=== PATIENT | female | born 1980 | race Hispanic/Latino ===

== ENCOUNTER 2016-08-08 00:20 | Outpatient (CLI) | payer MEDICAID ==
[2016-08-08 01:15] VITALS: BP 132/81
[2016-08-08 01:50] LABS: Bilirubin,Urine NEG (Negative); Blood,Urine NEG (Negative); Ketones,Urine TR mg/dL (Negative); Leukocyte Esterase,Urine NEG (Negative); Mucus,Urine 3+ /HPF; Nitrite,Urine NEG (Negative)
== END 2016-08-08 02:10 | disposition home or self-care (01) ==
LOC: TRG 00:20
PROVIDERS: ATTEND Obstetrics & Gynecology
DX: O47.1 False labor at or after 37 completed weeks of gestation (principal); Z3A.38 38 weeks gestation of pregnancy
CPT/HCPCS: 81001

== ENCOUNTER 2016-08-12 18:13 | Outpatient (CLI) | payer MEDICAID | END 2016-08-12 20:00 | disposition home or self-care (01) | LOC: TRG 18:13 | PROVIDERS: ATTEND Obstetrics & Gynecology | DX: O09.523 Supervision of elderly multigravida, third trimester (principal); O47.1 False labor at or after 37 completed weeks of gestation; Z3A.38 38 weeks gestation of pregnancy | CPT/HCPCS: 59025 ==

== ENCOUNTER 2016-08-14 12:24 | Inpatient (IN) | payer MEDICAID ==
[2016-08-14] MEDS ORDERED: LACTATED RINGERS 1,000 ML ONE (14:07)
[2016-08-14] MEDS ORDERED: SUBLIMAZE IV PRN (14:21)
[2016-08-14] MEDS: LACTATED RINGERS 1,000 ML IV SCH ×2 (14:30→15:26)
[2016-08-14] MEDS ORDERED: PITOCin 20 UNIT in NACL 0.9% 1000 ML 1,000 ML IV SCH (15:00)
[2016-08-14] MEDS ORDERED: ePHEDrine SULFATE IV PRN ×2 (15:09→16:25)
[2016-08-14] MEDS ORDERED: XYLOCAINE 2% INFILTRATI ONE (15:09)
[2016-08-14] MEDS ORDERED: BRETHINE IVP PRN (15:09)
[2016-08-14] MEDS ORDERED: BRETHINE SUB-Q PRN (15:09)
[2016-08-14] MEDS ORDERED: MINERAL OIL PO PRN (15:09)
[2016-08-14 15:23] LABS: Hematocrit 32.4 % (30.3-42.9); Hemoglobin 10.4 gm/dl (10.1-14.3); Mean Corpuscular HGB Conc 32 % (30-34); Mean Corpuscular Hemoglobin 27 pg (28-32); Mean Corpuscular Volume 82 fl (79-97); Platelet Count 322 K/mm3 (140-440); Red Blood Count 3.93 M/mm3 (3.65-5.03); Red Cell Distribution Width 16.1 % (13.2-15.2); White Blood Count 13.1 K/mm3 (4.5-11.0)
[2016-08-14] MEDS ORDERED: ePHEDrine SULFATE ONE (15:44)
[2016-08-14] MEDS ORDERED: PITOCin/NS 20 UNIT/1000ML DRIP 20 UNITS/1,000 ML BAG IV SCH (16:00)
[2016-08-14] MEDS ORDERED: PITOCin/NS 30 UNIT/500ML 30 UNITS/500 ML BAG IV SCH ×2 (16:00)
[2016-08-14] MEDS ORDERED: LACTATED RINGERS 1,000 ML IV SCH (16:00)
[2016-08-14] MEDS ORDERED: fentaNYL-BUPIV 2 MCG/ML-0.125% 200 MCG/100 ML BAG EPIDURAL ONE (16:10)
--- NOTE | 2016-08-14 16:24 | Anesthesia Consultation ---
Anesthesia Consult and Med Hx Date of service: 08/14/16 - Airway Anesthetic Teeth Evaluation: Good ROM Head & Neck: Adequate Mental/Hyoid Distance: Adequate Mallampati Class: Class II Intubation Access Assessment: Probably Good - Pre-Operative Health Status ASA Pre-Surgery Classification: ASA2 Proposed Anesthetic Plan: Epidural, Spinal - Pulmonary Hx Asthma: No COPD: No Hx Pneumonia: No - Cardiovascular System Hx Hypertension: No - Central Nervous System Hx Seizures: No Hx Psychiatric Problems: No - Endocrine Hx Renal Disease: No Hx End Stage Renal Disease: No Hx Hypothyroidism: No Hx Hyperthyroidism: No - Hematic Hx Anemia: No Hx Sickle Cell Disease: No - Other Systems Hx Alcohol Use: No
[2016-08-14] MEDS ORDERED: NARCAN 2 MG/2 ML IV PRN (16:25)
[2016-08-14] MEDS ORDERED: fentaNYL-BUPIV 2 MCG/ML-0.125% 200 MCG/100 ML BAG EPIDURAL SCH (17:00)
--- NOTE | 2016-08-14 17:07 | History and Physical Report ---
History of Present Illness Date of examination: 08/14/16 Date of admission: 08/14/16 12:25 Chief complaint: I'm in labor History of present illness: Patient is a 36 year old at 39.2 weeks with EDC 08/20. Patient course complicated by ama and late presentation to care as well as cigarette smoking. Past History Past Medical History: no pertinent history Past Surgical History: cholecystectomy Social history: single - Obstetrical History Expected Date of Delivery: 08/20/16 Actual Gestation: 39 Week(s) 1 Day(s) : 3 Medications and Allergies Allergies Allergy/AdvReac Type Severity Reaction Status Date / Time Penicillins Allergy Swelling Verified 08/14/16 14:16 Sulfa (Sulfonamide Allergy Hives Verified 08/14/16 14:16 Antibiotics) Active Meds: Active Medications Fentanyl (Sublimaze) 100 mcg IV Q2H PRN PRN Reason: Labor Pain Last Admin: 08/14/16 15:08 Dose: 100 mcg Lactated Ringer's (Lactated Ringers) 1,000 mls @ 125 mls/hr IV DIRECT ANDREW Last Admin: 08/14/16 15:26 Dose: 125 mls/hr Oxytocin 20 unit/ Sodium (Chloride) 1,002 mls @ 0 mls/hr IV DIRECT ANDREW PRN Reason: As Directed Lactated Ringer's (Lactated Ringers) 1,000 mls @ 125 mls/hr IV DIRECT ANDREW Oxytocin/Sodium Chloride (Pitocin/Ns 20 Unit/1000ml Drip) 20 units in 1,000 mls @ 125 mls/hr IV DIRECT ANDREW Oxytocin/Sodium Chloride (Pitocin/Ns 30 Unit/500ml) 30 units in 500 mls @ 4 mls /hr IV TITR ANDREW PRN Reason: Protocol Last Titration: 08/14/16 16:57 Dose: 6 ml/hr, 6 mls/hr Fentanyl/Bupivacaine/Sodium Chlor (Fentanyl-Bupiv 2 Mcg/Ml-0.125%) 200 mcg in 100 mls @ 12 mls/hr EPIDURAL TITR ANDREW PRN Reason: Protocol Last Admin: 08/14/16 16:35 Dose: 12 mls/hr Mineral Oil (Mineral Oil) 30 ml PO QHS PRN PRN Reason: Constipation Review of Systems All systems: negative Genitourinary: contractions - Vital Signs Vital signs: Vital Signs Pulse BP 85 162/86 08/14/16 13:55 08/14/16 13:55 Temp Pulse Resp BP Pulse Ox 97.2 F L 81 16 110/68 96 08/14/16 14:05 08/14/16 16:57 08/14/16 14:05 08/14/16 16:57 08/14/16 16:57 - Physical Exam Breasts: Cardiovascular: Regular rate, Normal S1, Normal S2 Lungs: Positive: Clear to auscultation, Normal air movement Abdomen: Positive: normal appearance, soft, normal bowel sounds. Negative: distention, tenderness Vulva: both: normal Vagina: Positive: normal moisture. Negative: discharge Cervix: Negative: lesion, discharge Uterus: Positive: normal size, normal contour Adnexa: both: normal Anus/Rectum: Positive: normal perianal skin, heme negative. Negative: rectal mass, hemorrhoids Extremities: Deep Tendon Reflex Grade: Normal +2 - Obstetrical FHR: auscultation normal Uterine Contraction Monitor Mode: External Cervical Dilatation: 5 Cervical Effacement Percentage: 90 station: -2 Uterine Contraction Frequency (min): 6 Uterine Contraction Pattern: Regular Results Result Diagrams: 08/14/16 14:05 Abnormal lab results 08/14/16 Range/Units 14:05 WBC 13.1 H (4.5-11.0) K/mm3 MCH 27 L (28-32) pg RDW 16.1 H (13.2-15.2) % All other labs normal. Assessment and Plan IUP at 39.1 weeks in active labor. ADmit for management. Patient wants epidural. Anticipate .
--- NOTE | 2016-08-14 18:37 | Procedure Note ---
OB Delivery Note - Delivery Date of Delivery: 08/14/16 Surgeon: ISSAC BOOKER Estimated blood loss: 100cc - Vaginal Delivery presentation: vertex Delivery position: OA Intrapartum events: none Delivery induction: none Delivery augmentation: pitocin Delivery monitor: external FHT, external uterine Route of delivery: Delivery placenta: spontaneous Delivery cord: nuchal cord, 3 umbilical vessels Delivery laceration: 1st degree Delivery repair: vicryl Anesthesia: epidural Delivery comments: Viable male delivered over intact perineum. Loose nuchal cord easily reduced on the perineum. Weight 7 pounds. Placenta delivered spontaneously and intact with 3vc. Small vaginal laceration easily repaired. Patient tolerated procedure well. - A at 1 minute: 8 at 5 minutes: 9 Gender: Male (Weight 7 pounds)
[2016-08-14] MEDS ORDERED: DULCOLAX PR PRN (21:48)
[2016-08-14] MEDS ORDERED: ZOFRAN IV PRN (21:48)
[2016-08-14] MEDS ORDERED: PHENERGAN PO PRN (21:48)
[2016-08-14] MEDS ORDERED: TUCKS PAD TP PRN (21:48)
[2016-08-14] MEDS ORDERED: DERMOPLAST TP PRN (21:48)
[2016-08-14] MEDS ORDERED: BENADRYL PO PRN (21:48)
[2016-08-14] MEDS ORDERED: PHENERGAN PR PRN (21:48)
[2016-08-14] MEDS ORDERED: NORCO 5/325 PO PRN (21:48)
[2016-08-14] MEDS ORDERED: MILK OF MAGNESIA PO PRN (21:48)
[2016-08-14] MEDS ORDERED: TYLENOL PO PRN (21:48)
[2016-08-14] MEDS ORDERED: SODIUM CHLORIDE FLUSH SYRINGE 10 ML IV PRN (21:48)
[2016-08-14] MEDS ORDERED: LANSINOH TP PRN (21:48)
[2016-08-15] MEDS: MOTRIN PO SCH ×3 (00:16→19:08)
[2016-08-15] MEDS: COLACE PO SCH ×2 (00:16→08:21)
[2016-08-15] MEDS ORDERED: BOOSTRIX IM ONE (06:00)
[2016-08-15 07:38] LABS: Hematocrit 28.5 % (30.3-42.9); Hemoglobin 9.1 gm/dl (10.1-14.3)
[2016-08-15] MEDS ORDERED: PRENATAL VITAMIN PO SCH (10:00)
--- NOTE | 2016-08-15 14:34 | Progress Note ---
Assessment and Plan PPD 1 s/p . Doing well. Patient would prefer discharge on today. Subjective - Subjective Date of service: 08/15/16 Interval history: Patient is a 36 year old at 39.2 weeks with EDC 08/20. Patient course complicated by ama and late presentation to care as well as cigarette smoking. Patient reports: appetite normal, voiding normally, pain well controlled, ambulating normally [place]: doing well Objective - Vital Signs Latest vital signs: Vital Signs Temp Pulse Pulse Resp BP BP Pulse Ox 08/15/16 07:57 97.9 F 68 18 130/70 08/15/16 04:45 98.1 F 71 18 111/62 08/15/16 01:15 98.6 F 86 20 124/69 08/14/16 20:30 99.5 F 90 20 160/86 08/14/16 20:01 97 H 142/84 08/14/16 19:59 90 148/83 08/14/16 19:57 90 142/80 08/14/16 19:55 88 148/81 08/14/16 19:52 85 145/80 08/14/16 19:49 93 H 154/88 08/14/16 19:47 91 H 155/84 08/14/16 19:45 96 H 151/106 08/14/16 19:43 100 H 142/90 08/14/16 19:41 93 H 150/80 08/14/16 19:39 83 152/81 08/14/16 19:37 93 H 158/80 08/14/16 19:35 104 H 149/84 08/14/16 19:33 100 H 141/75 08/14/16 19:31 91 H 142/77 08/14/16 19:29 88 152/80 08/14/16 19:27 88 148/84 08/14/16 19:25 86 153/82 08/14/16 19:23 93 H 146/80 08/14/16 19:21 76 145/81 08/14/16 19:19 76 141/80 08/14/16 19:17 75 148/83 08/14/16 19:15 77 149/81 08/14/16 19:13 76 151/80 08/14/16 19:11 81 148/79 08/14/16 19:09 81 146/73 08/14/16 19:07 84 145/81 08/14/16 19:05 82 149/78 08/14/16 19:03 80 146/78 08/14/16 19:01 76 148/76 08/14/16 18:59 90 145/82 08/14/16 18:57 81 143/88 08/14/16 18:55 87 150/90 08/14/16 18:53 78 150/85 08/14/16 18:51 81 158/82 08/14/16 18:49 83 148/79 08/14/16 18:47 83 155/76 08/14/16 18:45 84 146/71 08/14/16 18:43 92 H 135/69 08/14/16 18:41 83 139/71 08/14/16 18:39 85 139/85 08/14/16 18:37 87 131/73 08/14/16 18:35 83 134/71 08/14/16 18:33 86 142/73 08/14/16 18:32 85 156/74 08/14/16 18:29 105 H 127/69 08/14/16 18:28 93 H 134/79 08/14/16 18:27 18 08/14/16 18:25 88 132/76 08/14/16 18:23 89 135/75 08/14/16 18:21 83 127/71 08/14/16 18:20 98.6 F 18 08/14/16 18:19 83 131/73 08/14/16 18:17 101 H 133/67 08/14/16 18:16 95 H 130/66 08/14/16 18:13 96 H 120/76 08/14/16 18:11 103 H 120/71 08/14/16 18:09 133 H 107/54 08/14/16 18:07 100 H 125/63 100 08/14/16 18:05 104 H 123/72 08/14/16 18:03 102 H 122/67 08/14/16 18:02 91 H 100 08/14/16 18:01 86 123/62 08/14/16 17:59 106 H 150/72 08/14/16 17:58 97 H 137/83 08/14/16 17:57 111 H 100 08/14/16 17:55 83 126/78 08/14/16 17:53 88 138/83 2017 17:51 100 H 128/81 100 17 17:49 81 128/75 2017 17:47 76 133/77 100 17 17:45 81 133/86 17 17:43 82 142/80 17 17:42 91 H 100 17 17:41 103 H 117/72 17 17:39 99 H 123/71 08/14/16 17:37 96 H 123/68 97 17 17:35 86 127/72 08/14/16 17:33 91 H 125/68 17 17:32 85 97 17 17:31 92 H 114/67 17 17:29 89 123/70 17 17:27 94 H 135/78 97 17 17:25 83 130/75 17 17:23 85 127/70 17 17:22 86 97 17 17:21 82 119/66 17 17:19 78 115/68 17 17:17 82 113/66 97 17 17:15 98 H 108/61 17 17:13 84 109/60 08/14/16 17:12 93 H 96 17 17:11 85 102/59 17 17:09 87 99/57 17 17:07 90 100/57 96 17 17:05 87 106/55 17 17:03 85 105/55 17 17:02 95 H 97 17 17:01 96 H 95/53 17 16:59 94 H 101/63 17 16:57 81 110/68 96 2017 16:55 80 119/69 17 16:53 90 109/67 17 16:52 84 96 17 16:51 92 H 117/72 2017 16:49 89 118/72 2017 16:47 86 121/72 97 17 16:45 89 124/72 08/14/16 16:43 87 121/70 17 16:42 89 97 17 16:41 87 125/78 17 16:39 90 137/80 17 16:37 85 142/79 96 17 16:35 92 H 129/74 08/14/16 16:33 93 H 137/81 08/14/16 16:32 94 H 97 08/14/16 16:31 86 130/69 08/14/16 16:29 100 H 145/68 08/14/16 16:27 94 H 142/79 98 08/14/16 16:25 91 H 133/78 08/14/16 16:23 86 132/74 08/14/16 16:22 87 97 08/14/16 16:21 89 122/75 08/14/16 16:19 78 126/76 08/14/16 16:17 87 127/79 98 08/14/16 16:15 88 132/78 08/14/16 16:13 78 127/78 08/14/16 16:12 90 97 08/14/16 16:11 91 H 123/76 08/14/16 16:09 85 132/80 08/14/16 16:07 74 147/86 98 08/14/16 16:05 78 144/87 08/14/16 16:03 82 139/73 08/14/16 16:02 89 99 08/14/16 16:01 87 145/69 08/14/16 15:57 86 99 08/14/16 15:55 84 176/77 08/14/16 15:53 40 L 76 L 08/14/16 15:52 98 H 99 08/14/16 15:47 83 98 17 15:42 87 99 17 15:37 79 99 17 15:32 79 98 17 15:27 85 99 17 15:22 76 98 17 15:17 90 98 17 15:11 81 97 08/14/16 15:06 80 98 17 15:01 91 H 99 08/14/16 14:56 80 99 17 14:51 81 98 17 14:46 81 99 03/20/17 14:41 78 99 08/14/16 14:36 81 100 Intake and Output 08/14/16 08/15/16 08/15/16 22:59 06:59 14:59 Intake Total 1125 720 600 Output Total 600 700 Balance 525 720 -100 Intake: IV 1125 Lactated Ringers 1,000 ml 1000 @ 125 mls/hr IV DIRECT ANDREW Rx#:[id number] PITOCin/NS 20 UNIT/1000ML 125 DRIP 20 units In 1,000 ml @ 125 mls/hr IV DIRECT ANDREW Rx#:[id number] Oral 600 Intake, Free Water 720 Output: Urine 600 700 Indwelling Catheter 600 Void 700 Other: Total, Intake Amount 360 Total, Output Amount 300 700 # Voids Void 1 Estimated Blood Loss 100 - Exam Cardiovascular: Present: Regular rate, Normal S1, Normal S2 Lungs: Present: Clear to auscultation, Normal air movement Abdomen: Present: normal appearance, soft Uterus: Present: normal, firm Extremities: Present: normal Incision: Present: normal, dry, intact - Labs Labs: Abnormal lab results 08/14/16 08/15/16 Range/Units 14:05 06:35 WBC 13.1 H (4.5-11.0) K/mm3 Hgb 9.1 L (10.1-14.3) gm/dl Hct 28.5 L (30.3-42.9) % MCH 27 L (28-32) pg RDW 16.1 H (13.2-15.2) %
--- NOTE | 2016-08-15 14:35 | Discharge Summary ---
Providers - Providers Date of Admission: 08/14/16 12:25 Date of discharge: 08/15/16 Attending physician: ISSAC BOOKER Primary care physician: ISSAC BOOKER Hospitalization Reason for admission: active labor Delivery: Episiotomy: none Discharge diagnosis: IUP at term delivered [place] baby: male Hospital course: Unremarkable Condition at discharge: Good Disposition: STILL A PATIENT Plan - Discharge Medications Prescriptions: HYDROcodone/APAP 5-325 [[place] 5/325] 1 each PO Q6HR PRN #15 tablet PRN Reason: Pain Ibuprofen [Motrin] 600 mg PO Q8H PRN #40 tablet PRN Reason: Pain - Provider Discharge Summary Additional instructions: [] Smoking cessation referral if applicable(refer to patient education folder for contact #) [] Refer to [facility]'s [facility] Booklet Call your doctor immediately for: * Fever > 100.5 * Heavy vaginal bleeding ( >1 pad per hour) * Severe persistent headache * Shortness of breath * Reddened, hot, painful area to leg or breast * Drainage or odor from incision. * Keep incision clean and dry at all times and follow doctor's instructions regarding bathing/showering - Follow up plan Follow up: ISSAC BOOKER MD [Primary Care Provider] - 7 Days
[2016-08-15 17:54] VITALS: BP 136/76
== END 2016-08-15 19:50 | disposition home or self-care (01) | DRG 775 ==
LOC: TRG 12:24 → LD 12:25 → TRG 12:25 → OB 20:15
PROVIDERS: ADMIT Obstetrics & Gynecology; ATTEND Obstetrics & Gynecology
PROC: 10E0XZZ Delivery of Products of Conception, External Approach (ICD-10-PCS; principal; 2016-08-14)
PROC: 0HQ9XZZ Repair Perineum Skin, External Approach (ICD-10-PCS; 2016-08-14)
PROC: 3E0S3CZ (ICD-10-PCS; 2016-08-14)
PROC: 00HU33Z Insertion of Infusion Device into Spinal Canal, Percutaneous Approach (ICD-10-PCS; 2016-08-14)
DX: O69.81X0 Labor and delivery complicated by cord around neck, without compression, not applicable or unspecified (principal); O99.334 Smoking (tobacco) complicating childbirth; O70.0 First degree perineal laceration during delivery; Z3A.39 39 weeks gestation of pregnancy; Z37.0 Single live birth; F17.210 Nicotine dependence, cigarettes, uncomplicated; Z90.49 Acquired absence of other specified parts of digestive tract
CPT/HCPCS: 36415; 85014; 85018; 85027; 86850; 86900; 86901; 90471; 90715; 99211; G0463; J2590; J3010; J7120

== ENCOUNTER 2016-08-17 22:23 | Emergency (ER) | payer MEDICAID ==
[2016-08-17 23:39] LABS: Basophils % (Auto) 0.6 % (0.0-1.8); Hematocrit 32.1 % (30.3-42.9); Hemoglobin 10.2 gm/dl (10.1-14.3); Mean Corpuscular HGB Conc 32 % (30-34); Mean Corpuscular Hemoglobin 26 pg (28-32); Mean Corpuscular Volume 82 fl (79-97); Platelet Count 444 K/mm3 (140-440); Red Cell Distribution Width 16.2 % (13.2-15.2); White Blood Count 13.5 K/mm3 (4.5-11.0)
[2016-08-17 23:58] LABS: Anion Gap 17 mmol/L; Blood Urea Nitrogen 9 mg/dL (7-17); Calcium 8.9 mg/dL (8.4-10.2); Carbon Dioxide 21 mmol/L (22-30); Chloride 104.8 mmol/L (98-107); Glucose 90 mg/dL (65-100); Sodium 139 mmol/L (137-145)
[2016-08-18 00:06] LABS: Bilirubin,Urine NEG (Negative); Blood,Urine MOD (Negative); Ketones,Urine NEG (Negative); Leukocyte Esterase,Urine SM (Negative); Mucus,Urine FEW /HPF; Nitrite,Urine NEG (Negative); Urobilinogen,Urine < 2.0 mg/dL (<2.0)
--- NOTE | 2016-08-18 01:00 | Cat Scan Report ---
FINAL REPORT PROCEDURE: CT HEAD/BRAIN WO CON TECHNIQUE: Computerized tomography of the head was performed without contrast material. HISTORY: headache COMPARISON: No prior studies are available for comparison. FINDINGS: Brain: Brain density appears normal. No evidence of intracranial hemorrhage. No parenchymal hemorrhage, mass lesions or mass effect are seen. No abnormal extraxial fluid collects or masses are seen. Ventricles: Ventricles are normal size and are midline. Bone Windows: No evidence of skull fracture. There is a 11.6 x 15.7 millimeter partially calcified subcutaneous nodule left parietal region laterally suggesting a sebaceous cyst. Other cutaneous nodules cannot be excluded. Paranasal sinuses: Minimal patchy mucosal disease seen in a few of the ethmoid air cells bilaterally. Mastoid air cells: Clear IMPRESSION: Negative unenhanced CT of the brain. Minimal paranasal sinus disease as described. Subcutaneous nodule as described
[2016-08-18 01:29] LABS: Alanine Aminotransferase 19 units/L (7-56); Albumin 3.2 g/dL (3.9-5); Albumin/Globulin Ratio 0.9 %; Alkaline Phosphatase 183 units/L (35-129); Bilirubin,Total 0.2 mg/dL (0.1-1.2); Total Protein 6.6 g/dL (6.3-8.2)
[2016-08-18 01:43] LABS: Bilirubin,Direct < 0.2 mg/dL (0-0.2)
[2016-08-18] MEDS ORDERED: NORMODYNE PO ONE (01:45)
--- NOTE | 2016-08-18 01:50 | Emergency Department Report ---
HPI - General Chief Complaint: High BP Time Seen by Provider: 08/17/16 23:17 - HPI HPI: This is a 36-year-old female who presents to the emergency department 4 days with complaint of high blood pressure, headaches and swollen feet. The patient says that the elevated blood pressures been going on for the past 2 or 3 weeks but prior to that she had been actually having low blood pressure. Over this time she is also been having some intermittent generalized headaches. She tried some Tylenol and Motrin and that appears to resolve her headache however today it has not gone away despite taking a hydrocodone. She denies any vision change, slurred speech or any neurological deficits. She otherwise denies any past medical history. The swelling to the lower extremities is mostly in the feet and has been going on for the past few days. Her TUMBLE TAILSTOCK TURRET LATHE OPERATOR is Dr. Gloria Valenzuela. She says that she called the office and was told to go to an urgent care. She went to the urgent care where she said that her labwork was normal but she was encouraged to go to the emergency department for a CT scan of the head. ED Past Medical Hx - Past Medical History Hx Hypertension: No Hx Congestive Heart Failure: No Hx Diabetes: No Hx Deep Vein Thrombosis: No Hx Renal Disease: No Hx Sickle Cell Disease: No Hx Seizures: No Hx Asthma: No Hx COPD: No Hx HIV: No Additional medical history: Gestational High Blood Pressure - Surgical History Past Surgical History?: No - Social History Smoking Status: Current Every Day Smoker Substance Use Type: None - Medications Home Medications: Home Medications Medication Instructions Recorded Confirmed Last Taken Type HYDROcodone/APAP 5-325 [[place] 1 each PO Q6HR PRN #15 tablet 08/14/16 Unknown Rx 5/325] Ibuprofen [Motrin] 600 mg PO Q8H PRN #40 tablet 08/14/16 Unknown Rx Labetalol [Normodyne TAB] 100 mg PO BID #60 tablet 08/18/16 Unknown Rx ED Review of Systems ROS: Stated complaint: HIGH BP/HEADACHE Other details as noted in HPI Comment: All other systems reviewed and negative Constitutional: denies: chills, fever Eyes: denies: eye pain, eye discharge, vision change ENT: denies: ear pain, throat pain Respiratory: denies: cough, shortness of breath, wheezing Cardiovascular: edema. denies: chest pain, palpitations Gastrointestinal: denies: abdominal pain, nausea, diarrhea Genitourinary: denies: urgency, dysuria, discharge Musculoskeletal: denies: back pain, joint swelling, arthralgia Skin: denies: rash, lesions Neurological: headache. denies: weakness, numbness Physical Exam - Physical Exam Vital Signs: Vital Signs 08/17/16 08/17/16 08/18/16 22:58 23:56 00:00 Temperature 98.2 F Pulse Rate 105 H 92 H 102 H Respiratory 16 31 H 17 Rate Blood Pressure 159/106 Blood Pressure 159/106 137/78 [Left] O2 Sat by Pulse 100 98 98 Oximetry 08/18/16 08/18/16 08/18/16 00:06 00:10 00:16 Temperature Pulse Rate 111 H 106 H 101 H Respiratory 12 14 27 H Rate Blood Pressure 137/78 137/78 137/78 Blood Pressure [Left] O2 Sat by Pulse 99 99 98 Oximetry 08/18/16 08/18/16 08/18/16 00:20 00:26 00:50 Temperature Pulse Rate 98 H 100 H Respiratory 14 14 Rate Blood Pressure 137/78 137/78 Blood Pressure 140/82 [Left] O2 Sat by Pulse 98 98 Oximetry 08/18/16 08/18/16 08/18/16 00:54 00:55 01:00 Temperature Pulse Rate 81 85 86 Respiratory 22 27 H 25 H Rate Blood Pressure 137/78 137/79 Blood Pressure [Left] O2 Sat by Pulse 97 97 97 Oximetry 08/18/16 08/18/16 08/18/16 01:05 01:10 01:15 Temperature Pulse Rate 98 H 96 H 111 H Respiratory 31 H 28 H 20 Rate Blood Pressure 143/81 140/85 140/85 Blood Pressure [Left] O2 Sat by Pulse 97 97 99 Oximetry Physical Exam: GENERAL: The patient is well-developed well-nourished. HEENT: Normocephalic. Atraumatic. Extraocular motions are intact. Patient has moist mucous membranes. Pupils equal reactive to light bilaterally. No nystagmus. NECK: Supple. Trachea is midline. CHEST/LUNGS: Clear to auscultation. There is no respiratory distress noted. HEART/CARDIOVASCULAR: Regular. There is no tachycardia. There is no gallop rub or murmur. ABDOMEN: Abdomen is soft, nontender. Patient has normal bowel sounds. There is no abdominal distention. SKIN: Skin is warm and dry. There is some mild nonpitting swelling to the feet and ankles bilaterally. No skin color change. NEURO: The patient is awake, alert, and oriented. The patient is cooperative. The patient has no focal neurologic deficits. The patient has normal speech. Cranial nerves II through XII grossly intact. MUSCULOSKELETAL: There is no tenderness or deformity. There is no limitation range of motion. There is no evidence of acute injury. ED Course Vital Signs 08/17/16 08/17/16 08/18/16 22:58 23:56 00:00 Temperature 98.2 F Pulse Rate 105 H 92 H 102 H Respiratory 16 31 H 17 Rate Blood Pressure 159/106 Blood Pressure 159/106 137/78 [Left] O2 Sat by Pulse 100 98 98 Oximetry 08/18/16 08/18/16 08/18/16 00:06 00:10 00:16 Temperature Pulse Rate 111 H 106 H 101 H Respiratory 12 14 27 H Rate Blood Pressure 137/78 137/78 137/78 Blood Pressure [Left] O2 Sat by Pulse 99 99 98 Oximetry 08/18/16 08/18/16 08/18/16 00:20 00:26 00:50 Temperature Pulse Rate 98 H 100 H Respiratory 14 14 Rate Blood Pressure 137/78 137/78 Blood Pressure 140/82 [Left] O2 Sat by Pulse 98 98 Oximetry 08/18/16 08/18/16 08/18/16 00:54 00:55 01:00 Temperature Pulse Rate 81 85 86 Respiratory 22 27 H 25 H Rate Blood Pressure 137/78 137/79 Blood Pressure [Left] O2 Sat by Pulse 97 97 97 Oximetry 08/18/16 08/18/16 08/18/16 01:05 01:10 01:15 Temperature Pulse Rate 98 H 96 H 111 H Respiratory 31 H 28 H 20 Rate Blood Pressure 143/81 140/85 140/85 Blood Pressure [Left] O2 Sat by Pulse 97 97 99 Oximetry - Consultations Consultation #1: I spoke with the patient's [employer]ST[employer] T[employer] LATHE OPERATOR, Dr. Valenzuela, who listened to the labs, vital signs and presentation. Since the patient's blood pressure has improved without any antihypertensives, she feels that the patient is safe for discharge home. However she recommends that the patient started on labetalol 100 mg twice daily and follow-up with her in the office early next week, like Sunday. 08/18/16 01:48 ED Medical Decision Making - Lab Data Result diagrams: 08/17/16 23:23 08/17/16 23:23 - Radiology Data Radiology results: report reviewed CT of the head does not show any acute process including no hemorrhage, mass, shift, diffuse edema or skull fracture. - Medical Decision Making 36-year-old female presents to the emergency department 4 days with complaint of headache, hypertension, swelling of the lower extremities. Patient's labs are mostly unremarkable. There is no thrombocytopenia, she has normal liver function and there is no proteinuria. She has some elevated alkaline phosphatase for some reason but normal LFTs and bilirubin. A CT of the head without contrast was done that started show any bleed, shift, mass or any acute process. Patient did have some hypertension when she first arrived but came down to much more reasonable level without any medications. There is no focal, motor or sensory deficits. Cranial nerves are intact. TUM[employer] TAILST[employer] TURRET LATHE OPERATOR has cleared her for discharge. Recommend starting her on labetalol and follow-up early next week with [employer] INST[employer]ER. She will return to the ER with any worsening of her symptoms or any acute distress. - Differential Diagnosis preeclampsia, essential hypertension, tension headache, migraine Critical Care Time: No Critical care attestation.: If time is entered above; I have spent that time in minutes in the direct care of this critically ill patient, excluding procedure time. ED Disposition Clinical Impression: hypertension Headache Qualifiers: Headache type: unspecified Headache chronicity pattern: acute headache Intractability: not intractable Qualified Code(s): R51 - Headache Disposition: DISCHARGED TO HOME OR SELFCARE Is pt being admited?: No Condition: Good Instructions: Hypertension (ED), Acute Headache (ED) Additional Instructions: You have been started on labetalol 100 mg twice daily for your blood pressure. Keep a blood pressure log. Return to the emergency department with any worsening of your symptoms or any acute distress. Follow-up with Dr. Valenzuela on Sunday or Sunday of this coming week. Prescriptions: Labetalol [Normodyne TAB] 100 mg PO BID #60 tablet Referrals: GLORIA VALENZUELA MD [Primary Care Provider] - 3-5 Days Time of Disposition: 01:52
[2016-08-18 01:56] VITALS: BP 139/91
== END 2016-08-18 02:00 | disposition home or self-care (01) ==
LOC: ED 22:23
DX: O16.5 Unspecified maternal hypertension, complicating the puerperium (principal); R51 Headache; F17.200 Nicotine dependence, unspecified, uncomplicated
CPT/HCPCS: 36415; 70450; 80048; 80074; 81001; 85025; 99284

== ENCOUNTER 2016-10-18 05:57 | Day surgery (SDC) | payer MEDICAID ==
--- NOTE | 2016-10-17 19:17 | Short Stay Summary ---
Short Stay Documentation Date of service: 10/18/16 Narrative H&P: Patient is 36 year old who is 7 weeks post . She presents for elective sterilization today. PMH none PSH Gallbladder Fhx: none Meds : vitamins - History Principal diagnosis: patient seen on 10/18/16 with no changes to condition H&P: obtained from office Past Medical History: No medical history Past Surgical History: cholecystectomy Social history: - Allergies and Medications Current Medications: Allergies Penicillins Allergy (Verified 10/16/16 15:10) Swelling Sulfa (Sulfonamide Antibiotics) Allergy (Verified 10/16/16 15:10) Unknown Home Medications Medication Instructions Recorded Confirmed Last Taken Type Labetalol [Normodyne TAB] 100 mg PO BID #60 tablet 08/18/16 Unknown Rx Active Medications Famotidine (Pepcid) 20 mg PO PREOP NR Stop: 10/18/16 23:59 Sodium Chloride (Nacl 0.9% 1000 Ml) 1,000 mls @ 75 mls/hr IV DIRECT ANDREW Metoclopramide HCl (Reglan) 10 mg PO PREOP NR Stop: 10/18/16 23:59 Midazolam HCl (Versed) 2 mg IV PREOP NR Stop: 10/18/16 23:59 - Physical exam Lungs: Clear to auscultation, Normal air movement Breasts: deferred Heart: Regular rate, Normal S1, Normal S2 Gastrointestinal: normal, normoactive bowel sounds Female Genitourinary: normal Rectal Exam: deferred Extremities: No edema - Brief post op/procedure progress note Date of procedure: 10/18/16 Pre-op diagnosis: Undesired fertility Post-op diagnosis: same Procedure: Laparoscopic bilateral salpingectomy Anesthesia: GETA Findings: normal uterus, tubes and ovaries Surgeon: ISSAC BOOKER Estimated blood loss: none Pathology: list (right and left) Specimen disposition: to lab Condition: stable - Hospital course Hospital course: unremarkable - Disposition Condition at discharge: Good Disposition: DISCHARGED TO HOME OR SELFCARE Short Stay Discharge Plan Activity: no restrictions Weight Bearing Status: Weight Bear as Tolerated Diet: regular Follow up with: ISSAC BOOKER MD [Primary Care Provider] - 14 Days Prescriptions: HYDROcodone/APAP 5-325 [[place] 5-325 mg TAB] 2 each PO ONCE PRN #40 tablet PRN Reason: Pain, Moderate (4-6) Ibuprofen [Motrin] 800 mg PO Q8HR PRN #40 tablet PRN Reason: Pain
[~2016-10-18 05:57] MED LIST: CLEOCIN 600 MG/50 mL 600 MG/50 ML BAG IV NR
[2016-10-18] MEDS ORDERED: PEPCID PO NR (06:00)
[2016-10-18] MEDS ORDERED: REGLAN PO NR (06:00)
[2016-10-18] MEDS ORDERED: VERSED IV NR (06:00)
[2016-10-18] MEDS ORDERED: NACL 0.9% 1000 ML 1,000 ML IV SCH (06:00)
[2016-10-18] MEDS ORDERED: NACL BACTERIOSTATIC INFILTRATI ONE (06:42)
--- NOTE | 2016-10-18 06:53 | Anesthesia Consultation ---
Anesthesia Consult and Med Hx Date of service: 10/18/16 - Airway Anesthetic Teeth Evaluation: Good ROM Head & Neck: Adequate Mental/Hyoid Distance: Adequate Mallampati Class: Class II Intubation Access Assessment: Probably Good - Pulmonary Exam CTA: Yes - Cardiac Exam Cardiac Exam: RRR - Pre-Operative Health Status ASA Pre-Surgery Classification: ASA2 Proposed Anesthetic Plan: General - Pulmonary Hx Smoking: Yes Hx Asthma: No COPD: No Hx Pneumonia: No - Cardiovascular System Hx Hypertension: Yes (since 07/2016) - Central Nervous System Hx Seizures: No Hx Psychiatric Problems: No - Endocrine Hx Renal Disease: No Hx End Stage Renal Disease: No Hx Hypothyroidism: No Hx Hyperthyroidism: No - Hematic Hx Anemia: No Hx Sickle Cell Disease: No - Other Systems Hx Alcohol Use: Yes (occas) Hx Cancer: No
--- NOTE | 2016-10-18 06:53 | Anesthesia Day of Surgery ---
Anesthesia Day of Surgery - Day of Surgery Patient Examined: Yes Patient H&P Reviewed: Yes Patient is NPO: Yes
[2016-10-18] MEDS ORDERED: ZEMURON IV ONE ×2 (07:00→07:19)
[2016-10-18] MEDS ORDERED: NEO SYNEPHRINE/NS Syringe(OR USE) IV ONE (07:00)
[2016-10-18] MEDS ORDERED: MARCAINE 0.25% INFILTRATI ONE ×2 (07:15→08:58)
[2016-10-18] MEDS ORDERED: XYLOCAINE MPF 2% ONE (07:18)
[2016-10-18] MEDS ORDERED: DILAUDID ONE (07:20)
[2016-10-18] MEDS ORDERED: DIPRIVAN 10 MG/ML IV ONE (07:20)
--- NOTE | 2016-10-18 07:36 | Post Anesthesia Evaluation ---
- Post Anesthesia Evaluation Patient Participated: Yes Airway Patent: Yes Stable Respiratory Function: Yes Temp > 96.8F: Yes Pain Manageable: Yes Adequeate Hydration: Yes Anesthesia Complications: No Block Receding Appropriately: Not Applicable
[2016-10-18] MEDS ORDERED: ROBINUL ONE ×2 (08:30→08:50)
[2016-10-18] MEDS ORDERED: ZOFRAN ONE (08:31)
[2016-10-18] MEDS ORDERED: TORADOL ONE (08:31)
[2016-10-18] MEDS ORDERED: NEOSTIGMINE ONE (08:31)
[2016-10-18] MEDS ORDERED: NACL 0.9% 1000 ML 1,000 ML ONE (08:37)
[2016-10-18] MEDS ORDERED: NACL 0.9% IR ONE (08:58)
[2016-10-18] MEDS ORDERED: DEMEROL IV PRN (10:00)
[2016-10-18] MEDS ORDERED: DILAUDID IV PRN (10:00)
[2016-10-18] MEDS ORDERED: ZOFRAN IV PRN (10:00)
[2016-10-18] MEDS ORDERED: NORCO 5/325 PO PRN (10:00)
[2016-10-18 12:05] VITALS: BP 104/59
--- NOTE | 2016-10-18 20:34 | Operative Report ---
PREOPERATIVE DIAGNOSIS: Undesired fertility. POSTOPERATIVE DIAGNOSES. Undesired fertility. PROCEDURE: Bilateral partial salpingectomy, laparoscopic approach. SURGEON: Gloria Valenzuela MD ANESTHESIA: General. ESTIMATED BLOOD LOSS: Minimal. COMPLICATIONS: None. SPECIMENS: Portion of right and left fallopian tubes. FINDINGS: Normal uterus and ovaries. DESCRIPTION OF PROCEDURE: The patient taken to the OR with IV running in place. She was properly identified as herself. She was given general anesthesia and placed in dorsal lithotomy position and prepped and draped in normal sterile fashion. Attention was turned to the patient's vagina. The cervix was visualized with a speculum. An acorn cannula was placed to the cervix to provide a means to manipulate the uterus. Following this, the bladder was drained approximately 200 mL of clear urine. The speculum was then removed. Surgeon's gloves were changed and attention was turned to the patient's abdomen. A small umbilical incision was made. Through this incision, a 5 mm trocar was placed. The laparoscope confirmed intra-abdominal placement. Survey of the abdomen revealed normal anatomy. ____ trocar was placed in the left lower quadrant. Through this incision, a 5 mm trocar was placed using the patient's Trendelenburg position. Both tubes were identified and the tubes were followed to the fimbriated end. They were then cauterized along the edge of the broad ligament and then transected at the level of the cornua. Following this, each tube was removed out through the left lower quadrant port. There was excellent hemostasis noted at the end of this portion of the procedure. At this point, all the instruments were removed from the patient's abdomen and pelvis. The skin was closed with 4-0 Monocryl. She was then awakened and taken to recovery in stable condition. She tolerated the procedure well. The sponge, lap, needle, and instrument counts were correct x2. JOB# [id number] ANNE-MARIE/SANGEETHA
== END 2016-10-18 10:42 | disposition home or self-care (01) ==
LOC: OR 05:57
PROVIDERS: ATTEND Obstetrics & Gynecology
DX: Z30.2 Encounter for sterilization (principal); I10 Essential (primary) hypertension; Z90.49 Acquired absence of other specified parts of digestive tract; Z88.2 Allergy status to sulfonamides; Z88.0 Allergy status to penicillin; Z72.89 Other problems related to lifestyle
CPT/HCPCS: 58661; 81025; 88302; J1170; J1885; J2175; J2250; J2370; J2405; J2704; J2710; J7030